=== PATIENT | female | born 1955 | race Caucasian/White ===

== ENCOUNTER → 2016-09-24 | Outpatient (CLI) | payer MEDICAID ==
--- NOTE | 2016-09-27 13:22 | MR ---
EXAM DATE: 09/24/16 PATIENT'S AGE: 60 Patient: RYANN RAMIREZ Facility: [place], [place] Site Site : [id number] Study: MRI Head [id number] 2:35:59 PM Ordering Physician: PAN PATTERSON Final Report: Indication: Weakness. Loss of coordination. Comparison: None. Technique: Multiplanar T1, T2, FLAIR and diffusion-weighted imaging. Findings: Disproportionate atrophy at of the cerebellum as compared to the remainder the brain parenchyma. Finding is nonspecific. Scattered foci of T2/FLAIR signal hyperintensity within the white matter both cerebral hemispheres consistent with small vessel ischemic changes or sequela migraine headache. No intracranial hemorrhage. No abnormal ventricular dilatation. Intracranial vascular flow voids are preserved. No mass or mass effect. No midline shift. The no restricted diffusion to suggest acute ischemia. Bilateral orbits are unremarkable. Normal appearing sella. Visualized paranasal sinuses and mastoid air cells are unremarkable Impression: 1. Disproportionate atrophy of the cerebellum as compared to the remainder the brain parenchyma. Finding is nonspecific but can be seen with chronic phenytoin use or alcoholic encephalopathy. 2. No brainstem or mid brain atrophy 3. No intracranial hemorrhage. No restricted diffusion to suggest acute ischemia 4. Scattered nonspecific foci of T2 signal within the white matter of both cerebral hemispheres consistent with chronic small vessel ischemic changes or sequela of migraine headache Dictated by Jeanmarie Teresa MD @ Sep 24 2016 2:54PM (Electronic Signature) Report Signed by Proxy. EDEL
== END ==
LOC: MW.MRI 13:56
PROVIDERS: ATTEND Family Medicine
DX: R53.1 Weakness (principal)
CPT/HCPCS: 70551; 70551-26

== ENCOUNTER 2022-12-18 16:23 | Inpatient (IN) | payer MEDICARE, MEDICAID ==
[2022-12-18 20:03] LABS: BASOPHILS PERCENT AUTO 0.2 % (0.0-1.5); EOSINOPHILS PERCENT AUTO 0.1 % (0.0-7.0); HEMATOCRIT 31.1 % (36.0-46.0); HEMOGLOBIN 10.6 g/dL (12.0-16.0); LYMPHOCYTES ABSOLUTE AUTO 1.5 K/uL (0.6-2.4); LYMPHOCYTES PERCENT AUTO 9.3 % (16.0-40.0); MEAN CORPUSCULAR HEMOGLOBIN 29.2 pg (27.0-32.0); MEAN CORPUSCULAR HGB CONC 34.1 g/dL (31.0-37.0); MEAN CORPUSCULAR VOLUME 85.7 fL (80.0-98.0); MONOCYTES ABSOLUTE AUTO 1.5 K/uL (0.0-0.8); MONOCYTES PERCENT AUTO 9.1 % (0.0-15.0); NEUTROPHILS ABSOLUTE AUTO 12.9 K/uL (1.4-5.7); NEUTROPHILS PERCENT AUTO 81.3 % (48.0-80.0); NRBC ABSOLUTE 0 K/uL; PLATELET COUNT,PLT 700 K/uL (150-400); RED BLOOD CELL COUNT 3.63 M/uL (4.30-5.90); WHITE BLOOD CELL COUNT,WBC 15.86 K/uL (4.0-11.0)
[2022-12-18 20:04] LABS: APPEARANCE,URINE CLEAR; COLOR,URINE YELLOW; GLUCOSE,URINE NEGATIVE (NEGATIVE); KETONES,URINE TRACE mg/dL (NEGATIVE); LEUKOCYTE ESTERASE,URINE NEGATIVE (NEGATIVE); NITRITE,URINE NEGATIVE (NEGATIVE); OCCULT BLOOD,URINE NEGATIVE (NEGATIVE); PROTEIN,URINE NEGATIVE (NEGATIVE); UROBILINOGEN,URINE 0.2 EU/dL (<2.0)
[2022-12-18 20:05] LABS: BILIRUBIN,URINE MODERATE (NEGATIVE)
[2022-12-18 20:40] LABS: A/G RATIO 0.6 (0.9-1.6); ALBUMIN 2.7 g/dL (3.4-5.0); BILIRUBIN TOTAL 0.6 mg/dL (0.2-1.0); CALCIUM 9.1 mg/dL (8.5-10.1); CARBON DIOXIDE,CO2 20.7 mmol/L (21.0-32.0); CREATININE 2.3 mg/dL (0.6-1.0); EST CRCL DRUG DOSING (CG) 17.46 mL/min; TSH ULTRASENSITIVE 5.27 uIU/mL (0.36-3.74)
[2022-12-18 20:50] LABS: LACTIC ACID 1.3 mmol/L (0.4-2.0)
[2022-12-18 20:58] LABS: T4 FREE 1.06 ng/dL (0.76-1.46)
[2022-12-18] MEDS ORDERED: Albuterol/Ipratropium 3.0-0.5 MG/3 ML Neb Soln NEB PRN (21:59)
[2022-12-18] MEDS ORDERED: Ondansetron 4 MG/2 ML SDV IVPUSH PRN (21:59)
[2022-12-18] MEDS ORDERED: Nicotine 21 MG/24 Hr Patch TRDERM PRN (21:59)
[2022-12-18] MEDS ORDERED: Enoxaparin 40 MG/0.4 ML Syringe SUBCUT SCH (22:00)
[2022-12-18] MEDS ORDERED: Sodium Chloride 0.9% 500 ML IV SCH (22:00)
[2022-12-18] MEDS ORDERED: Heparin Sodium 5,000 Units/ML Vial SUBCUT SCH (22:15)
[2022-12-18] MEDS ORDERED: Sodium Chloride 0.9% 500 ML IV ONE (22:15)
[2022-12-19] MEDS ORDERED: Sodium Chloride 0.9% 500 ML IV ONE (03:29)
[2022-12-19 05:53] LABS: HEMATOCRIT 28.5 % (36.0-46.0); HEMOGLOBIN 9.5 g/dL (12.0-16.0); MEAN CORPUSCULAR HEMOGLOBIN 28.4 pg (27.0-32.0); MEAN CORPUSCULAR HGB CONC 33.3 g/dL (31.0-37.0); MEAN CORPUSCULAR VOLUME 85.3 fL (80.0-98.0); NRBC ABSOLUTE 0 K/uL; PLATELET COUNT,PLT 571 K/uL (150-400); RED BLOOD CELL COUNT 3.34 M/uL (4.30-5.90)
[2022-12-19] MEDS: Heparin Sodium 5,000 Units/ML Vial SUBCUT SCH ×2 (05:54→17:54)
[2022-12-19 06:18] LABS: A/G RATIO 0.6 (0.9-1.6); ALBUMIN 2.3 g/dL (3.4-5.0); BILIRUBIN TOTAL 0.5 mg/dL (0.2-1.0); CALCIUM 8.3 mg/dL (8.5-10.1); CARBON DIOXIDE,CO2 19.7 mmol/L (21.0-32.0); CREATININE 1.5 mg/dL (0.6-1.0); EST CRCL DRUG DOSING (CG) 26.77 mL/min; MAGNESIUM 2.1 mg/dL (1.8-2.4); POTASSIUM,K 3.4 mmol/L (3.5-5.1); PROTEIN TOTAL,TP 6.1 g/dL (6.4-8.2)
[2022-12-19 06:33] LABS: BAND ABSOLUTE MAN 0.3; BAND PERCENT MAN 3 %; LYMPHOCYTES ABSOLUTE MAN 1.3 (0.6-2.4); LYMPHOCYTES PERCENT MAN 11 % (16.0-40.0); METAMYELOCYTE ABSOLUTE MAN 0.1; METAMYELOCYTE PERCENT MAN 1 %; MONOCYTES ABSOLUTE MAN 0.7 (0.0-0.8); MONOCYTES PERCENT MAN 6 % (0.0-15.0); SEG NEUTROPHILS ABSOLUTE MAN 9.2 (1.4-5.7); SEG NEUTROPHILS PERCENT MAN 79 % (48.0-80.0)
[2022-12-19] MEDS: Potassium Chloride 20 MEQ Tab.ER PO SCH ×2 (11:23→20:28)
[2022-12-20] MEDS: Heparin Sodium 5,000 Units/ML Vial SUBCUT SCH ×2 (05:42→17:45)
[2022-12-20 05:48] LABS: BASOPHILS PERCENT AUTO 0.2 % (0.0-1.5); EOSINOPHILS PERCENT AUTO 0.2 % (0.0-7.0); HEMATOCRIT 27.3 % (36.0-46.0); HEMOGLOBIN 9.1 g/dL (12.0-16.0); LYMPHOCYTES ABSOLUTE AUTO 1.5 K/uL (0.6-2.4); LYMPHOCYTES PERCENT AUTO 11.4 % (16.0-40.0); MEAN CORPUSCULAR HEMOGLOBIN 28.9 pg (27.0-32.0); MEAN CORPUSCULAR HGB CONC 33.3 g/dL (31.0-37.0); MEAN CORPUSCULAR VOLUME 86.7 fL (80.0-98.0); MONOCYTES ABSOLUTE AUTO 1.6 K/uL (0.0-0.8); MONOCYTES PERCENT AUTO 12.3 % (0.0-15.0); NEUTROPHILS ABSOLUTE AUTO 9.8 K/uL (1.4-5.7); NEUTROPHILS PERCENT AUTO 75.9 % (48.0-80.0); NRBC ABSOLUTE 0 K/uL; PLATELET COUNT,PLT 552 K/uL (150-400); RED BLOOD CELL COUNT 3.15 M/uL (4.30-5.90); WHITE BLOOD CELL COUNT,WBC 12.95 K/uL (4.0-11.0)
[2022-12-20 06:12] LABS: A/G RATIO 0.6 (0.9-1.6); ALBUMIN 2.2 g/dL (3.4-5.0); BILIRUBIN TOTAL 0.7 mg/dL (0.2-1.0); CALCIUM 8.8 mg/dL (8.5-10.1); CARBON DIOXIDE,CO2 21.5 mmol/L (21.0-32.0); EST CRCL DRUG DOSING (CG) 37.59 mL/min; MAGNESIUM 2.1 mg/dL (1.8-2.4); PHOSPHORUS 2.5 mg/dL (2.6-4.7); PROTEIN TOTAL,TP 5.9 g/dL (6.4-8.2)
[2022-12-20] MEDS: Sodium Chloride 0.9% 1,000 ML IV SCH ×2 (09:58→20:17)
[2022-12-20 16:56] LABS: CALCIUM 8.4 mg/dL (8.5-10.1); CARBON DIOXIDE,CO2 18.7 mmol/L (21.0-32.0); CREATININE 0.9 mg/dL (0.6-1.0); EST CRCL DRUG DOSING (CG) 41.77 mL/min; POTASSIUM,K 3.4 mmol/L (3.5-5.1)
[2022-12-21] MEDS: Heparin Sodium 5,000 Units/ML Vial SUBCUT SCH ×2 (06:28→17:57)
[2022-12-21] MEDS: Sodium Chloride 0.9% 1,000 ML IV SCH (06:32)
[2022-12-21 06:45] LABS: BASOPHILS PERCENT AUTO 0.1 % (0.0-1.5); HEMATOCRIT 26.3 % (36.0-46.0); HEMOGLOBIN 8.7 g/dL (12.0-16.0); LYMPHOCYTES ABSOLUTE AUTO 1.3 K/uL (0.6-2.4); LYMPHOCYTES PERCENT AUTO 8.5 % (16.0-40.0); MEAN CORPUSCULAR HEMOGLOBIN 29.1 pg (27.0-32.0); MEAN CORPUSCULAR HGB CONC 33.1 g/dL (31.0-37.0); MONOCYTES ABSOLUTE AUTO 1.6 K/uL (0.0-0.8); MONOCYTES PERCENT AUTO 10.4 % (0.0-15.0); NEUTROPHILS ABSOLUTE AUTO 12.2 K/uL (1.4-5.7); NRBC ABSOLUTE 0 K/uL; PLATELET COUNT,PLT 477 K/uL (150-400); RED BLOOD CELL COUNT 2.99 M/uL (4.30-5.90)
[2022-12-21 07:01] LABS: CALCIUM 8.4 mg/dL (8.5-10.1); CARBON DIOXIDE,CO2 15.5 mmol/L (21.0-32.0); CREATININE 0.7 mg/dL (0.6-1.0); EST CRCL DRUG DOSING (CG) 57.55 mL/min; POTASSIUM,K 3.2 mmol/L (3.5-5.1)
[2022-12-21] MEDS: Metoprolol Succinate 50 MG Tab.ER PO SCH (08:03)
[2022-12-21] MEDS: Acetaminophen 325 MG Tab PO PRN ×2 (08:15→18:01)
[2022-12-21 09:07] LABS: MAGNESIUM 1.6 mg/dL (1.8-2.4); PHOSPHORUS 2.2 mg/dL (2.6-4.7)
[2022-12-21] MEDS ORDERED: POTASSIUM PHOSPHATES IV ONE (10:30)
[2022-12-21] MEDS ORDERED: MAGNESIUM SULFATE IV ONE (10:30)
[2022-12-21] MEDS ORDERED: SODIUM CHLORIDE 0.9% IV ONE (10:30)
[2022-12-21] MEDS: Folic Acid 1 MG Tab PO SCH (10:53)
[2022-12-21] MEDS: Thiamine 100 MG Tab PO SCH (10:53)
[2022-12-22] MEDS: Heparin Sodium 5,000 Units/ML Vial SUBCUT SCH (05:54)
[2022-12-22 06:19] LABS: BASOPHILS PERCENT AUTO 0.2 % (0.0-1.5); EOSINOPHILS ABSOLUTE AUTO 0.1 K/uL (0.0-0.7); EOSINOPHILS PERCENT AUTO 0.4 % (0.0-7.0); HEMATOCRIT 25.5 % (36.0-46.0); HEMOGLOBIN 8.3 g/dL (12.0-16.0); LYMPHOCYTES ABSOLUTE AUTO 1.2 K/uL (0.6-2.4); LYMPHOCYTES PERCENT AUTO 9.4 % (16.0-40.0); MEAN CORPUSCULAR HEMOGLOBIN 28.4 pg (27.0-32.0); MEAN CORPUSCULAR HGB CONC 32.5 g/dL (31.0-37.0); MEAN CORPUSCULAR VOLUME 87.3 fL (80.0-98.0); MONOCYTES ABSOLUTE AUTO 1.1 K/uL (0.0-0.8); MONOCYTES PERCENT AUTO 8.7 % (0.0-15.0); NEUTROPHILS ABSOLUTE AUTO 10.5 K/uL (1.4-5.7); NEUTROPHILS PERCENT AUTO 81.3 % (48.0-80.0); NRBC ABSOLUTE 0 K/uL; PLATELET COUNT,PLT 537 K/uL (150-400); RED BLOOD CELL COUNT 2.92 M/uL (4.30-5.90)
[2022-12-22 07:00] LABS: A/G RATIO 0.5 (0.9-1.6); ALBUMIN 1.9 g/dL (3.4-5.0); CARBON DIOXIDE,CO2 15.9 mmol/L (21.0-32.0); CREATININE 0.7 mg/dL (0.6-1.0); EST CRCL DRUG DOSING (CG) 56.78 mL/min; MAGNESIUM 2.5 mg/dL (1.8-2.4); PHOSPHORUS 2.4 mg/dL (2.6-4.7); POTASSIUM,K 3.4 mmol/L (3.5-5.1); PROTEIN TOTAL,TP 5.7 g/dL (6.4-8.2)
[2022-12-22] MEDS ORDERED: Potassium Chloride 10 MEQ Tab.ER PO SCH ×2 (08:00→12:00)
[2022-12-22] MEDS: Thiamine 100 MG Tab PO SCH (09:17)
[2022-12-22] MEDS: Metoprolol Succinate 50 MG Tab.ER PO SCH (09:17)
[2022-12-22] MEDS: Folic Acid 1 MG Tab PO SCH (09:19)
[2022-12-22] MEDS: Acetaminophen 325 MG Tab PO PRN (09:19)
[2022-12-22] MEDS: Potassium Chloride 10 MEQ Tab.ER PO SCH ×2 (09:37→13:00)
[2022-12-22] MEDS ORDERED: Bisacodyl 5 MG Tab PO ONE (10:00)
[2022-12-22] MEDS: Phosphorus #1 250 MG Tab PO SCH ×3 (12:59→23:20)
[2022-12-22] MEDS: Polyethylene Glycol 3350 Powder 17 GM Packet PO SCH ×2 (13:00→16:17)
[2022-12-23] MEDS: Phosphorus #1 250 MG Tab PO SCH ×5 (06:08→23:31)
[2022-12-23 06:09] LABS: BASOPHILS PERCENT AUTO 0.1 % (0.0-1.5); EOSINOPHILS PERCENT AUTO 0.3 % (0.0-7.0); HEMATOCRIT 24.4 % (36.0-46.0); HEMOGLOBIN 7.8 g/dL (12.0-16.0); LYMPHOCYTES PERCENT AUTO 7.5 % (16.0-40.0); MEAN CORPUSCULAR HEMOGLOBIN 28.2 pg (27.0-32.0); MEAN CORPUSCULAR VOLUME 88.1 fL (80.0-98.0); MONOCYTES ABSOLUTE AUTO 1.2 K/uL (0.0-0.8); MONOCYTES PERCENT AUTO 9.4 % (0.0-15.0); NEUTROPHILS ABSOLUTE AUTO 10.6 K/uL (1.4-5.7); NEUTROPHILS PERCENT AUTO 82.7 % (48.0-80.0); NRBC ABSOLUTE 0 K/uL; PLATELET COUNT,PLT 525 K/uL (150-400); RED BLOOD CELL COUNT 2.77 M/uL (4.30-5.90); WHITE BLOOD CELL COUNT,WBC 12.78 K/uL (4.0-11.0)
[2022-12-23 06:35] LABS: CALCIUM 8.3 mg/dL (8.5-10.1); CARBON DIOXIDE,CO2 20.9 mmol/L (21.0-32.0); CREATININE 0.7 mg/dL (0.6-1.0); EST CRCL DRUG DOSING (CG) 56.78 mL/min; PHOSPHORUS 2.4 mg/dL (2.6-4.7); POTASSIUM,K 4.4 mmol/L (3.5-5.1)
[2022-12-23] MEDS ORDERED: Propofol 200 MG/20 ML SDV ONE (07:31)
[2022-12-23] MEDS ORDERED: Water For Injection, Sterile 20 ML ONE (08:45)
[2022-12-23] MEDS ORDERED: cefOXitin 1 GM Vial ONE (08:45)
[2022-12-23] MEDS: Metoprolol Succinate 50 MG Tab.ER PO SCH (09:33)
[2022-12-23] MEDS: Folic Acid 1 MG Tab PO SCH (09:34)
[2022-12-23] MEDS: Thiamine 100 MG Tab PO SCH (09:34)
[2022-12-23 09:55] LABS: RED BLOOD CELL COUNT 2.73 M/uL (4.30-5.90); RETICULOCYTE ABSOLUTE 84.4 K/uL (20-80); RETICULOCYTE COUNT PERCENT 3.1 % (0.5-1.5)
[2022-12-23 10:04] LABS: PERCENT FE SATURATION 20.18 % (20-55); TRANSFERRIN 76.3
[2022-12-23] MEDS: Ciprofloxacin in D5W 400 MG in Premix Bag 1 BAG IV SCH ×4 (10:46→21:44)
[2022-12-23] MEDS ORDERED: metroNIDAZOLE/Normal Saline 500 MG in Premix Bag 1 BAG IV SCH (11:00)
[2022-12-23] MEDS: metroNIDAZOLE/Normal Saline 500 MG in Premix Bag 1 BAG IV SCH ×2 (12:02→20:24)
[2022-12-23 12:45] LABS: HEMATOCRIT 24.9 % (36.0-46.0); HEMOGLOBIN 8.1 g/dL (12.0-16.0); MEAN CORPUSCULAR HEMOGLOBIN 28.5 pg (27.0-32.0); MEAN CORPUSCULAR HGB CONC 32.5 g/dL (31.0-37.0); MEAN CORPUSCULAR VOLUME 87.7 fL (80.0-98.0); MEAN PLATELET VOLUME 8.5 fL (7.40-12.00); RED BLOOD CELL COUNT 2.84 M/uL (4.30-5.90); WHITE BLOOD CELL COUNT,WBC 13.17 K/uL (4.0-11.0)
[2022-12-23] MEDS: Acetaminophen 325 MG Tab PO PRN ×2 (16:34→20:34)
[2022-12-24] MEDS: metroNIDAZOLE/Normal Saline 500 MG in Premix Bag 1 BAG IV SCH ×2 (04:40→11:28)
[2022-12-24] MEDS: Phosphorus #1 250 MG Tab PO SCH ×3 (04:44→11:28)
[2022-12-24 06:02] LABS: BASOPHILS PERCENT AUTO 0.1 % (0.0-1.5); EOSINOPHILS ABSOLUTE AUTO 0.1 K/uL (0.0-0.7); EOSINOPHILS PERCENT AUTO 0.4 % (0.0-7.0); HEMATOCRIT 26.1 % (36.0-46.0); HEMOGLOBIN 8.3 g/dL (12.0-16.0); LYMPHOCYTES ABSOLUTE AUTO 0.9 K/uL (0.6-2.4); LYMPHOCYTES PERCENT AUTO 6.3 % (16.0-40.0); MEAN CORPUSCULAR HGB CONC 31.8 g/dL (31.0-37.0); MEAN CORPUSCULAR VOLUME 88.2 fL (80.0-98.0); MONOCYTES ABSOLUTE AUTO 1.4 K/uL (0.0-0.8); MONOCYTES PERCENT AUTO 10.3 % (0.0-15.0); NEUTROPHILS ABSOLUTE AUTO 11.5 K/uL (1.4-5.7); NEUTROPHILS PERCENT AUTO 82.9 % (48.0-80.0); NRBC ABSOLUTE 0 K/uL; PLATELET COUNT,PLT 506 K/uL (150-400); RED BLOOD CELL COUNT 2.96 M/uL (4.30-5.90)
[2022-12-24 06:24] LABS: CARBON DIOXIDE,CO2 24.8 mmol/L (21.0-32.0); CREATININE 1.1 mg/dL (0.6-1.0); EST CRCL DRUG DOSING (CG) 36.92 mL/min; MAGNESIUM 1.6 mg/dL (1.8-2.4); PHOSPHORUS 2.9 mg/dL (2.6-4.7); POTASSIUM,K 3.8 mmol/L (3.5-5.1)
[2022-12-24] MEDS: Acetaminophen 325 MG Tab PO PRN (07:10)
[2022-12-24] MEDS: Metoprolol Succinate 50 MG Tab.ER PO SCH (08:51)
[2022-12-24] MEDS: Folic Acid 1 MG Tab PO SCH (08:51)
[2022-12-24] MEDS: Thiamine 100 MG Tab PO SCH (08:52)
[2022-12-24] MEDS ORDERED: Loperamide 2 MG Cap PO PRN (08:54)
[2022-12-24] MEDS ORDERED: Iron Polysaccharides Complex 150 MG Cap PO SCH (09:00)
[2022-12-24] MEDS: Ciprofloxacin in D5W 400 MG in Premix Bag 1 BAG IV SCH ×2 (10:09)
[2022-12-24 14:47] VITALS: BP 158/74; PULSE 81
== END 2022-12-24 14:48 | disposition home health service (06) | DRG 683 ==
LOC: MW.ED 16:23 → MW.MS 21:30
PROVIDERS: ADMIT Family Medicine; ATTEND Family Medicine
PROC: 0DBH8ZX Excision of Cecum, Via Natural or Artificial Opening Endoscopic, Diagnostic (ICD-10-PCS; principal; 2022-12-23)
DX: N17.9 Acute kidney failure, unspecified (principal); C17.2 Malignant neoplasm of ileum; E87.1 Hypo-osmolality and hyponatremia; R53.1 Weakness; G11.9 Hereditary ataxia, unspecified; Z20.822 Contact with and (suspected) exposure to COVID-19; E87.6 Hypokalemia; E87.8 Other disorders of electrolyte and fluid balance, not elsewhere classified; R53.81 Other malaise; F17.210 Nicotine dependence, cigarettes, uncomplicated; E86.0 Dehydration; I10 Essential (primary) hypertension; R32 Unspecified urinary incontinence; R74.8 Abnormal levels of other serum enzymes; R74.01 Elevation of levels of liver transaminase levels; Z86.19 Personal history of other infectious and parasitic diseases; K52.9 Noninfective gastroenteritis and colitis, unspecified; Z79.899 Other long term (current) drug therapy
CPT/HCPCS: 36415; 71045; 80053; 81003; 82550; 83605; 84439; 84443; 84484; 85025; 93005; 99285; U0002; 00811; 74176; 74176-26; 80048; 82378; 82607; 82728; 82746; 82977; 83550; 83735; 84100; 84132; 84295; 85027; 85045; 93010; 97110-GP; 97162-GP; 97530-GP; A9270-GY; J0694; J0744; J1644; J2704; J3475; J3490; J7030; J7040

== ENCOUNTER 2022-12-27 07:39 | Emergency (ER) | payer MEDICARE ==
[2022-12-27] MEDS ORDERED: Dextrose 5%-0.45% NaCl 1,000 ML IV SCH (08:00)
[2022-12-27 08:18] LABS: HEMATOCRIT 27.8 % (36.0-46.0); HEMOGLOBIN 9.1 g/dL (12.0-16.0); MEAN CORPUSCULAR HEMOGLOBIN 28.8 pg (27.0-32.0); MEAN CORPUSCULAR HGB CONC 32.7 g/dL (31.0-37.0); NRBC ABSOLUTE 0 K/uL; PLATELET COUNT,PLT 453 K/uL (150-400); RED BLOOD CELL COUNT 3.16 M/uL (4.30-5.90); WHITE BLOOD CELL COUNT,WBC 11.21 K/uL (4.0-11.0)
[2022-12-27 08:23] LABS: INR 2.56 (0.86-1.11)
[2022-12-27 08:38] LABS: LACTIC ACID 5.5 mmol/L (0.4-2.0)
[2022-12-27 08:42] LABS: BAND ABSOLUTE MAN 0.3; BAND PERCENT MAN 3 %; SEG NEUTROPHILS PERCENT MAN 71 % (48.0-80.0)
[2022-12-27 08:43] LABS: LYMPHOCYTES ABSOLUTE MAN 0.8 (0.6-2.4); LYMPHOCYTES PERCENT MAN 7 % (16.0-40.0); MONOCYTES ABSOLUTE MAN 2.1 (0.0-0.8); MONOCYTES PERCENT MAN 19 % (0.0-15.0)
[2022-12-27 08:45] LABS: A/G RATIO 0.6 (0.9-1.6); BILIRUBIN TOTAL 2.5 mg/dL (0.2-1.0); CALCIUM 8.3 mg/dL (8.5-10.1); CARBON DIOXIDE,CO2 15.6 mmol/L (21.0-32.0); CREATININE 2.6 mg/dL (0.6-1.0); EST CRCL DRUG DOSING (CG) 15.15 mL/min; MAGNESIUM 1.4 mg/dL (1.8-2.4); POTASSIUM,K 4.8 mmol/L (3.5-5.1); PROTEIN TOTAL,TP 5.5 g/dL (6.4-8.2); TSH ULTRASENSITIVE 3.05 uIU/mL (0.36-3.74)
[2022-12-27] MEDS ORDERED: Cefepime 2 GM in Sodium Chloride 0.9% 50 ML IV ONE (08:54)
[2022-12-27] MEDS ORDERED: Magnesium Sulfate/Water 2 GM in Premix Bag 1 BAG IV ONE (10:02)
[2022-12-27] MEDS ORDERED: Dextrose 5%-0.9% NaCl 1,000 ML IV SCH (10:15)
[2022-12-27 10:24] LABS: BILIRUBIN DIRECT 2.2 mg/dL (0.0-0.5); BILIRUBIN INDIRECT 0.4; BILIRUBIN TOTAL 2.6 mg/dL (0.2-1.0)
[2022-12-27 10:27] VITALS: PULSE 100
[2022-12-27 10:55] LABS: APPEARANCE,URINE CLOUDY; GLUCOSE,URINE NEGATIVE (NEGATIVE); KETONES,URINE TRACE mg/dL (NEGATIVE); LEUKOCYTE ESTERASE,URINE NEGATIVE (NEGATIVE); NITRITE,URINE POSITIVE (NEGATIVE); OCCULT BLOOD,URINE NEGATIVE (NEGATIVE); PROTEIN,URINE 30 mg/dL (NEGATIVE); UROBILINOGEN,URINE 0.2 EU/dL (<2.0)
[2022-12-27 10:57] LABS: BILIRUBIN,URINE MODERATE (NEGATIVE); COLOR,URINE AMBER
[2022-12-27 11:11] LABS: EPITHELIAL CELLS,URINE MODERATE (NONE-FEW); RBC,URINE 0-5 (0-2/HPF); SQUAMOUS EPITHELIAL CELLS,UR MODERATE; WBC,URINE 0-2 (0-5/HPF)
[2022-12-27 11:12] LABS: AMORPHOUS SEDIMENT,URINE FEW (NEGATIVE); BACTERIA,URINE MODERATE (NEGATIVE); HYALINE CASTS,URINE FEW (0-2/LPF); MUCUS,URINE FEW (NONE-MOD)
[2022-12-27 12:48] VITALS: BP 133/82
== END 2022-12-27 12:50 ==
LOC: MW.ED 07:39
DX: I12.9 Hypertensive chronic kidney disease with stage 1 through stage 4 chronic kidney disease, or unspecified chronic kidney disease (principal); K72.90 Hepatic failure, unspecified without coma; Z20.822 Contact with and (suspected) exposure to COVID-19
CPT/HCPCS: 36415; 71045; 76700; 80053; 81001; 82247; 82248; 82330; 82947; 83605; 83690; 83735; 83880; 84443; 84484; 85025; 85610; 86850; 86900; 86901; 87040; 87086; 93005; 96361; 96365; 96366; 96367; 99291; J0692; J3475; J3490; J7042; U0002; 93010